=== PATIENT | female | born 1965 | race Caucasian/White ===

== ENCOUNTER 2020-11-07 17:44 | Emergency (ER) | payer SELFPAY ==
--- NOTE | 2020-11-07 17:55 | ED General ---
General Chief Complaint: General Problems/Pain Stated Complaint: DIZZINESS; TREMBLING; OUT OF LISINOPRIL History of Present Illness Date Seen by Provider: Nov 07, 2020 Time Seen by Provider: 17:53 Initial Comments 55-year-old female presents with feeling a little bit dizzy, and trembling of her hands. Patient reports that symptoms started yesterday. She reports that she has been out of lisinopril for couple days otherwise no new changes. She denies any fever, chills, cough, shortness of breath, urinary symptoms, headache, nausea or vomiting. Patient denies a lot of alcohol usage or previous recently stopping. She feels like she may be having a little fluttering or palpitations in her chest but no chest pain. Patient reports her last menstrual cycle was about a year and a half ago. Allergies and Home Medications Allergies Coded Allergies: No Known Drug Allergies (Unverified , 11/07/20) Patient Home Medication List Home Medication List Reviewed: Yes Review of Systems Review of Systems Constitutional: No chills; dizziness; No fever EENTM: no symptoms reported Respiratory: No cough, No short of breath Cardiovascular: see HPI; No chest pain, No edema Gastrointestinal: No abdominal pain, No nausea, No vomiting Musculoskeletal: see HPI Skin: no symptoms reported Psychiatric/Neurological: Tremors Hematologic/Lymphatic: No Symptoms Reported Immunological/Allergic: no symptoms reported Physical Exam Vital Signs Vital Signs - First Documented 11/07/20 11/07/20 17:48 19:23 Temp 36.5 Pulse 104 Resp 16 B/P (MAP) 171/127 (142) Pulse Ox 100 O2 Delivery Room Air Capillary Refill : Height, Weight, BMI Height: '" Weight: lbs. oz. 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 Norm as Tested, Other (Mild tremors of her hands) Skin: Normal Color, Warm/Dry Progress/Results/Core Measures Suspected Sepsis SIRS Temperature: Pulse: Respiratory Rate: Laboratory Tests 11/07/20 18:10: White Blood Count 4.0L Blood Pressure / Mean: Laboratory Tests 11/07/20 18:10: Creatinine 0.68, Platelet Count 166, Total Bilirubin 0.7 Results/Orders Lab Results Laboratory Tests Test 11/07/20 18:08 11/07/20 18:10 11/07/20 18:21 Range/Units Glucometer 88 70-110 MG/DL White Blood Count 4.0 L 4.3-11.0 10^3/uL Red Blood Count 4.74 4.35-5.85 10^6/uL Hemoglobin 14.3 11.5-16.0 G/DL Hematocrit 44 35-52 % Mean Corpuscular Volume 93 80-99 FL Mean Corpuscular Hemoglobin 30 25-34 PG Mean Corpuscular Hemoglobin Concent 32 32-36 G/DL Red Cell Distribution Width 14.0 10.0-14.5 % Platelet Count 166 130-400 10^3/uL Mean Platelet Volume 11.7 H 7.4-10.4 FL Immature Granulocyte % (Auto) 0 % Neutrophils (%) (Auto) 61 42-75 % Lymphocytes (%) (Auto) 29 12-44 % Monocytes (%) (Auto) 7 0-12 % Eosinophils (%) (Auto) 2 0-10 % Basophils (%) (Auto) 1 0-10 % Neutrophils # (Auto) 2.4 1.8-7.8 X 10^3 Lymphocytes # (Auto) 1.2 1.0-4.0 X 10^3 Monocytes # (Auto) 0.3 0.0-1.0 X 10^3 Eosinophils # (Auto) 0.1 0.0-0.3 10^3/uL Basophils # (Auto) 0.0 0.0-0.1 10^3/uL Immature Granulocyte # (Auto) 0.0 0.0-0.1 10^3/uL Sodium Level 139 135-145 MMOL/L Potassium Level 4.4 3.6-5.0 MMOL/L Chloride Level 104 98-107 MMOL/L Carbon Dioxide Level 26 21-32 MMOL/L Anion Gap 9 5-14 MMOL/L Blood Urea Nitrogen 10 7-18 MG/DL Creatinine 0.68 0.60-1.30 MG/DL Estimat Glomerular Filtration Rate > 60 BUN/Creatinine Ratio 15 Glucose Level 97 70-105 MG/DL Calcium Level 9.1 8.5-10.1 MG/DL Corrected Calcium 9.2 8.5-10.1 MG/DL Magnesium Level 2.0 1.6-2.4 MG/DL Total Bilirubin 0.7 0.1-1.0 MG/DL Aspartate Amino Transf (AST/SGOT) 60 H 5-34 U/L Alanine Aminotransferase (ALT/SGPT) 42 0-55 U/L Alkaline Phosphatase 74 40-136 U/L Total Protein 6.3 L 6.4-8.2 GM/DL Albumin 3.9 3.2-4.5 GM/DL Urine Color YELLOW Urine Clarity CLOUDY Urine pH 7.5 5-9 Urine Specific [place] 1.015 L 1.016-1.022 Urine Protein NEGATIVE NEGATIVE Urine Glucose (UA) NEGATIVE NEGATIVE Urine Ketones TRACE H NEGATIVE Urine Nitrite NEGATIVE NEGATIVE Urine Bilirubin NEGATIVE NEGATIVE Urine Urobilinogen 4.0 < = 1.0 MG/DL Urine Leukocyte Esterase NEGATIVE NEGATIVE Urine RBC (Auto) TRACE-I NEGATIVE Urine RBC NONE /HPF Urine WBC 0-2 /HPF Urine Squamous Epithelial Cells >50 H /HPF Urine Crystals NONE /LPF Urine Bacteria LARGE H /HPF Urine Casts NONE /LPF Urine Mucus NEGATIVE /LPF Urine Culture Indicated NO Urine Opiates Screen POSITIVE H NEGATIVE Urine Oxycodone Screen NEGATIVE NEGATIVE Urine Methadone Screen NEGATIVE NEGATIVE Urine Propoxyphene Screen NEGATIVE NEGATIVE Urine Barbiturates Screen NEGATIVE NEGATIVE Ur Tricyclic Antidepressants Screen NEGATIVE NEGATIVE Urine Phencyclidine Screen NEGATIVE NEGATIVE Urine Amphetamines Screen NEGATIVE NEGATIVE Urine Methamphetamines Screen NEGATIVE NEGATIVE Urine Benzodiazepines Screen NEGATIVE NEGATIVE Urine Cocaine Screen NEGATIVE NEGATIVE Urine Cannabinoids Screen NEGATIVE NEGATIVE My Orders Orders - OBREGON,BEBE L DO Cbc With Automated Diff (11/07/20 17:51) Comprehensive Metabolic Panel (11/07/20 17:51) Magnesium (11/07/20 17:51) Ua Culture If Indicated (11/07/20 17:51) Accucheck Stat ONCE (11/07/20 17:51) Ed Iv/Invasive Line Start (11/07/20 17:51) Ekg Tracing (11/07/20 17:51) Monitor-Rhythm Ecg Trace Only (11/07/20 17:51) Drug Screen Stat (Urine) (11/07/20 17:55) Thyroid Analyzer (11/07/20 17:58) Lisinopril Tablet (Zestril Tablet) (11/07/20 18:15) Medications Given in ED Vital Signs/I&O 11/07/20 11/07/20 17:48 19:23 Temp 36.5 36.5 Pulse 104 80 Resp 16 12 B/P (MAP) 171/127 (142) 123/72 (142) Pulse Ox 100 97 O2 Delivery Room Air Capillary Refill : Progress Note : Progress Note Patient symptoms improved throughout her stay. Patient reports that she has been under a lot of stress recently and thinks that maybe is just a reaction to the stress. She has not been sleeping well eating well etc. Patient's blood pressure improved throughout the stay. Patient stable and discharged home. She should follow-up with her primary care provider for continuation of care reevaluation next week. ECG Initial ECG Impression Date: Nov 07, 2020 Initial ECG Impression Time: 18:01 Initial ECG Rhythm: Normal Sinus, PVC Initial ECG Impression: Nonspecific Changes Comment sinus, pvc's, no acute changes Departure Impression Primary Impression: Anxiety related tremor Additional Impressions: Situational stress Hypertension Qualified Codes: I10 - Essential (primary) hypertension Disposition: HOME, SELF-CARE Condition: Stable Departure-Patient Inst. Referrals: JUNIE [place] MD (PCP/Family) Primary Care Physician Patient Instructions: Tremor, Stress, High Blood Pressure (DC) Add. Discharge Instructions: Follow-up with your primary care provider next week for recheck of today's symptoms return to the ER as needed All discharge instructions reviewed with patient and/or family. Voiced understanding. BEBE OBREGON DO Nov 07, 2020 17:55
[2020-11-07] MEDS ORDERED: lisINopril 10 MG (PRINIVIL) TABLET PO ONE (18:15)
[2020-11-07 18:16] LABS: EOSINOPHILS % (AUTO) 2 % (0-10); HEMATOCRIT 44 % (35-52); HEMOGLOBIN 14.3 G/DL (11.5-16.0); LYMPHOCYTES % (AUTO) 29 % (12-44); MEAN CORPUSCULAR HEMOGLOBIN 30 PG (25-34); MEAN CORPUSCULAR HGB CONC 32 G/DL (32-36); MEAN CORPUSCULAR VOLUME 93 FL (80-99); MEAN PLATELET VOLUME 11.7 FL (7.4-10.4); MONOCYTES % (AUTO) 7 % (0-12); NEUTROPHILS % (AUTO) 61 % (42-75); PLATELET COUNT 166 10^3/uL (130-400)
[2020-11-07 18:17] LABS: BASOPHILS % (AUTO) 1 % (0-10); EOSINOPHILS # (AUTO) 0.1 10^3/uL (0.0-0.3); LYMPHOCYTES # (AUTO) 1.2 X 10^3 (1.0-4.0); MONOCYTES # (AUTO) 0.3 X 10^3 (0.0-1.0); NEUTROPHILS # (AUTO) 2.4 X 10^3 (1.8-7.8)
[2020-11-07 18:28] LABS: BILIRUBIN,URINE NEGATIVE (NEGATIVE); CLARITY,URINE CLOUDY; COLOR,URINE YELLOW; GLUCOSE, URINE (UA) NEGATIVE (NEGATIVE); KETONES,URINE TRACE (NEGATIVE); LEUKOCYTE ESTERASE ,URINE NEGATIVE (NEGATIVE); NITRITE,URINE NEGATIVE (NEGATIVE); PH,URINE 7.5 (5-9); PROTEIN,URINE NEGATIVE (NEGATIVE)
[2020-11-07 18:29] LABS: BACTERIA,URINE LARGE /HPF; SQUAMOUS EPITHELIAL CELL,UR >50 /HPF; WBC,URINE 0-2 /HPF
[2020-11-07 18:34] LABS: OPIATE SCREEN URINE POSITIVE (NEGATIVE)
[2020-11-07 18:35] LABS: AMPHETAMINE SCREEN, URINE NEGATIVE (NEGATIVE); BARBITURATE SCREEN URINE NEGATIVE (NEGATIVE); BENZODIAZEPINES SCREEN URINE NEGATIVE (NEGATIVE); CANNABINOID SCREEN, URINE NEGATIVE (NEGATIVE); COCAINE SCREEN URINE NEGATIVE (NEGATIVE); METHADONE STAT NEGATIVE (NEGATIVE); METHAMPHETAMINE SCREEN URINE S NEGATIVE (NEGATIVE); OXYCODONE STAT NEGATIVE (NEGATIVE); PROPOXYPHENE STAT NEGATIVE (NEGATIVE); TRICYCLIC ANTIDEPRESSANTS SCRE NEGATIVE (NEGATIVE)
[2020-11-07 18:36] LABS: ALANINE AMINOTRANSFERASE 42 U/L (0-55); ALBUMIN 3.9 GM/DL (3.2-4.5); ALKALINE PHOSPHATASE 74 U/L (40-136); BILIRUBIN,TOTAL 0.7 MG/DL (0.1-1.0); BUN/CREATININE RATIO 15; CALCIUM 9.1 MG/DL (8.5-10.1); CARBON DIOXIDE 26 MMOL/L (21-32); CHLORIDE 104 MMOL/L (98-107); CREATININE SERUM 0.68 MG/DL (0.60-1.30); GFR ESTIMATED > 60; GLUCOSE 97 MG/DL (70-105); POTASSIUM 4.4 MMOL/L (3.6-5.0); SODIUM 139 MMOL/L (135-145); TOTAL PROTEIN 6.3 GM/DL (6.4-8.2)
[2020-11-07 19:23] VITALS: BP 123/72
== END 2020-11-07 19:23 | disposition home or self-care (01) ==
LOC: ER FS 17:46
DX: G25.2 Other specified forms of tremor (principal); F43.9 Reaction to severe stress, unspecified; I10 Essential (primary) hypertension
CPT/HCPCS: 36415; 80053; 80306; 81000; 82947; 83735; 84443; 85025; 93005; 93041

== ENCOUNTER 2022-10-12 10:27 | Emergency (ER) | payer SELFPAY ==
[~2022-10-12] VITALS: Ht 165 cm; Wt 100.0 kg
--- NOTE | 2022-10-12 10:43 | ED General ---
General Chief Complaint: General Problems/Pain Stated Complaint: TREMORS; DIZZINESS Source of Information: Patient, RN/MD Exam Limitations: No Limitations History of Present Illness Date Seen by Provider: Oct 12, 2022 Time Seen by Provider: 10:28 Initial Comments 57-year-old female with past medical history of hypertension coming in as referral from urgent care due to elevated blood pressure. The patient states she originally went to the urgent care due to feeling generally lightheaded and just shaky. She worked outside all day yesterday, sweats a lot, try to keep up with her fluids, went to urgent care because she was not feeling well. There her blood pressure initially was 200s over 100. Went down to 160s systolic with rest. She states she has been off her lisinopril for a couple of years after she lost weight and did not need it anymore. She states she unfortunately has gained the weight back, an was thinking she probably needed to be back on the medication. She denies any chest pain, shortness of breath, headache, vision changes, weakness, numbness, diarrhea, nausea, vomiting, rash, or any other concerns. She does endorse some mild dysuria. LMP was 4 years ago and she is postmenopausal. Allergies and Home Medications Allergies Coded Allergies: No Known Drug Allergies (Unverified , 11/07/20) Patient Home Medication List Home Medication List Reviewed: Yes Lisinopril (Lisinopril) 5 Mg Tablet, 5 MG PO DAILY Prescribed by: NORM RICARDO on 10/12/22 8308 Review of Systems Review of Systems Constitutional: No fever EENTM: no symptoms reported Respiratory: no symptoms reported Cardiovascular: no symptoms reported Gastrointestinal: no symptoms reported Musculoskeletal: no symptoms reported Skin: no symptoms reported Psychiatric/Neurological: See HPI Past [id number] Hx Patient Social History Tobacco Use?: Yes Tobacco type used: Cigarettes Past Medical History Surgery/Hospitalization HX: gastric bypass Surgeries: Yes Physical Exam Vital Signs Vital Signs - First Documented 10/12/22 10:35 Temp 36.0 Pulse 111 Resp 18 B/P (MAP) 173/91 (118) Pulse Ox 98 O2 Delivery Room Air Capillary Refill : Height, Weight, BMI Height: '" Weight: lbs. oz. kg; 36.00 BMI Method: General Appearance: No Apparent Distress, WD/WN Eyes: Bilateral Eye Normal Inspection, Bilateral Eye PERRL, Bilateral Eye EOMI, Bilateral Eye Other (Normal visual francis and visual acuity) HEENT: PERRL/EOMI, Normal ENT Inspection, Pharynx Normal Neck: Full Range of Motion, Normal Inspection, Non Tender, Supple Respiratory: Chest Non Tender, Lungs Clear, Normal Breath Sounds, No Accessory Muscle Use, No Respiratory Distress Cardiovascular: Regular Rate, Rhythm, No Edema, Normal Peripheral Pulses Gastrointestinal: Normal Bowel Sounds, Non Tender, Soft Back: Normal Inspection, No CVA Tenderness Extremity: Normal Capillary Refill, Normal Inspection, Normal Range of Motion, Non Tender, No Calf Tenderness, No Pedal Edema Neurologic/Psychiatric: Alert, Oriented x3, No Motor/Sensory Deficits, Normal 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, 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 Norm as Tested, Other (Normal [id number], normal gait) Skin: Normal Color, Warm/Dry Progress/Results/Core Measures Suspected Sepsis SIRS Temperature: Pulse: 111 Respiratory Rate: 18 Laboratory Tests 10/12/22 10:39: White Blood Count 4.5 Blood Pressure 173 /91 Mean: 118 Laboratory Tests 10/12/22 10:39: Creatinine 0.73, Platelet Count 122L, Total Bilirubin 1.1H Results/Orders Lab Results Laboratory Tests Test 10/12/22 10:36 10/12/22 10:39 Range/Units Urine Color YELLOW Urine Clarity CLEAR Urine pH 6.5 5-9 Urine Specific [place] <=1.005 1.016-1.022 Urine Protein NEGATIVE NEGATIVE Urine Glucose (UA) NEGATIVE NEGATIVE Urine Ketones NEGATIVE NEGATIVE Urine Nitrite NEGATIVE NEGATIVE Urine Bilirubin NEGATIVE NEGATIVE Urine Urobilinogen 0.2 < = 1.0 MG/DL Urine Leukocyte Esterase NEGATIVE NEGATIVE Urine RBC (Auto) 1+ H NEGATIVE Urine RBC 2-5 H /HPF Urine WBC NONE /HPF Urine Squamous Epithelial Cells 2-5 /HPF Urine Crystals NONE /LPF Urine Bacteria NEGATIVE /HPF Urine Casts NONE /LPF Urine Mucus NEGATIVE /LPF Urine Culture Indicated NO White Blood Count 4.5 4.3-11.0 10^3/uL Red Blood Count 4.92 3.80-5.11 10^6/uL Hemoglobin 15.1 11.5-16.0 g/dL Hematocrit 45 35-52 % Mean Corpuscular Volume 92 80-99 fL Mean Corpuscular Hemoglobin 31 25-34 pg Mean Corpuscular Hemoglobin Concent 33 32-36 g/dL Red Cell Distribution Width 13.0 10.0-14.5 % Platelet Count 122 L 130-400 10^3/uL Mean Platelet Volume 11.6 9.0-12.2 fL Immature Granulocyte % (Auto) 0 % Neutrophils (%) (Auto) 72 42-75 % Lymphocytes (%) (Auto) 21 12-44 % Monocytes (%) (Auto) 5 0-12 % Eosinophils (%) (Auto) 1 0-10 % Basophils (%) (Auto) 1 0-10 % Neutrophils # (Auto) 3.2 1.8-7.8 10^3/uL Lymphocytes # (Auto) 1.0 1.0-4.0 10^3/uL Monocytes # (Auto) 0.2 0.0-1.0 10^3/uL Eosinophils # (Auto) 0.1 0.0-0.3 10^3/uL Basophils # (Auto) 0.0 0.0-0.1 10^3/uL Immature Granulocyte # (Auto) 0.0 0.0-0.1 10^3/uL Percent Immature Platelet Fraction 10.6 H 0.0-7.6 % Sodium Level 140 135-145 MMOL/L Potassium Level 4.2 3.6-5.0 MMOL/L Chloride Level 104 98-107 MMOL/L Carbon Dioxide Level 22 21-32 MMOL/L Anion Gap 14 5-14 MMOL/L Blood Urea Nitrogen 15 7-18 MG/DL Creatinine 0.73 0.60-1.30 MG/DL Estimat Glomerular Filtration Rate 96 BUN/Creatinine Ratio 21 Glucose Level 103 70-105 MG/DL Calcium Level 9.9 8.5-10.1 MG/DL Corrected Calcium 9.6 8.5-10.1 MG/DL Total Bilirubin 1.1 H 0.1-1.0 MG/DL Aspartate Amino Transf (AST/SGOT) 115 H 5-34 U/L Alanine Aminotransferase (ALT/SGPT) 98 H 0-55 U/L Alkaline Phosphatase 92 40-136 U/L Total Protein 6.9 6.4-8.2 GM/DL Albumin 4.4 3.2-4.5 GM/DL My Orders Orders - NORM RICARDO MD Cbc With Automated Diff (10/12/22 10:39) Comprehensive Metabolic Panel (10/12/22 10:39) Ua Culture If Indicated (10/12/22 10:39) Ekg Tracing (10/12/22 10:39) Lisinopril Tablet (Zestril Tablet) (10/12/22 10:45) Medications Given in ED Current Medications Medications Dose Ordered Sig/Carie Route Start Time Stop Time Status Last Admin Dose Admin Lisinopril 5 mg ONCE ONCE PO 10/12/22 10:45 10/12/22 10:46 DC 10/12/22 10:50 5 MG Vital Signs/I&O 10/12/22 10:35 Temp 36.0 Pulse 111 Resp 18 B/P (MAP) 173/91 (118) Pulse Ox 98 O2 Delivery Room Air Capillary Refill : Progress Note : Progress Note 57-year-old female with above history coming in due to elevated blood pressure and feeling lightheaded. ABCs were intact and vitals are stable on presentation although her blood pressure is elevated. She is not having any chest pain, shortness of breath, weakness, numbness, headache, vision changes, or urinary issues. No clinical signs of endorgan damage. An IV was placed and basic labs were obtained were significant for a normal creatinine, normal hemoglobin, slightly elevated AST and ALT. I will have her follow back up with her PCP in the next month or so to have her liver enzymes redrawn to see if she needs further work-up. EKG with no acute ischemic changes on my interpretation. Given she is not having any chest pain and no concerning EKG findings, this is not consistent with ACS. She was given lisinopril here for her elevated blood pressure, and I will write a prescription for it. I believe she is otherwise stable for discharge with outpatient follow-up. She was sent home with strict return precautions. ECG Initial ECG Impression Date: Oct 12, 2022 Initial ECG Impression Time: 10:49 Initial ECG Rate: 86 Initial ECG Rhythm: Normal Sinus Comment Narrow QRS, normal axis, no significant ST changes or T wave abnormalities, significant artifact Departure Impression Primary Impression: Hypertension Qualified Codes: I10 - Essential (primary) hypertension Additional Impression: Transaminitis Disposition: HOME, SELF-CARE Condition: Stable Departure-Patient Inst. Decision time for Depature: 12:00 Referrals: NO,LOCAL PHYSICIAN (PCP/Family) Primary Care Physician Patient Instructions: High Blood Pressure ED Add. Discharge Instructions: Your blood pressure was elevated here. We would like to restart you on the lisinopril. It's possible you were slightly dehydrated. Additionally your liver enzymes were slightly elevated. These need to be redrawn by your regular doctor in the next month or so. Scripts Lisinopril (Lisinopril) 5 Mg Tablet 5 MG PO DAILY for 30 Days, #30 TAB Prov: NROM RICARDO MD 10/12/22 Work/School Note: Work Release Form Date Seen in the Emergency Department: Oct 12, 2022 Return to Work: Oct 13, 2022 Restrictions: No Restrictions NORM RICARDO MD Oct 12, 2022 10:43
[2022-10-12] MEDS ORDERED: lisINopril 10 MG (PRINIVIL) TABLET PO ONE (10:45)
[2022-10-12 10:50] LABS: BILIRUBIN,URINE NEGATIVE (NEGATIVE); CLARITY,URINE CLEAR; COLOR,URINE YELLOW; GLUCOSE, URINE (UA) NEGATIVE (NEGATIVE); KETONES,URINE NEGATIVE (NEGATIVE); LEUKOCYTE ESTERASE ,URINE NEGATIVE (NEGATIVE); NITRITE,URINE NEGATIVE (NEGATIVE); PH,URINE 6.5 (5-9); PROTEIN,URINE NEGATIVE (NEGATIVE)
[2022-10-12 10:59] LABS: BACTERIA,URINE NEGATIVE /HPF
[2022-10-12 11:05] LABS: BASOPHILS % (AUTO) 1 % (0-10); EOSINOPHILS # (AUTO) 0.1 10^3/uL (0.0-0.3); EOSINOPHILS % (AUTO) 1 % (0-10); HEMATOCRIT 45 % (35-52); HEMOGLOBIN 15.1 g/dL (11.5-16.0); LYMPHOCYTES % (AUTO) 21 % (12-44); MEAN CORPUSCULAR HEMOGLOBIN 31 pg (25-34); MEAN CORPUSCULAR HGB CONC 33 g/dL (32-36); MEAN CORPUSCULAR VOLUME 92 fL (80-99); MEAN PLATELET VOLUME 11.6 fL (9.0-12.2); MONOCYTES # (AUTO) 0.2 10^3/uL (0.0-1.0); MONOCYTES % (AUTO) 5 % (0-12); NEUTROPHILS # (AUTO) 3.2 10^3/uL (1.8-7.8); NEUTROPHILS % (AUTO) 72 % (42-75); PLATELET COUNT 122 10^3/uL (130-400); WHITE BLOOD COUNT 4.5 10^3/uL (4.3-11.0)
[2022-10-12 11:24] LABS: POTASSIUM 4.2 MMOL/L (3.6-5.0)
[2022-10-12 11:25] LABS: ALBUMIN 4.4 GM/DL (3.2-4.5); BILIRUBIN,TOTAL 1.1 MG/DL (0.1-1.0); CALCIUM 9.9 MG/DL (8.5-10.1); CREATININE SERUM 0.73 MG/DL (0.60-1.30); TOTAL PROTEIN 6.9 GM/DL (6.4-8.2)
[2022-10-12] MEDS ORDERED: LISI5TAB20 PO (11:48)
[2022-10-12 12:00] VITALS: BP 144/88
== END 2022-10-12 11:55 | disposition home or self-care (01) ==
LOC: EDUNIT# 10:27 → ER FS 10:29
DX: I10 Essential (primary) hypertension (principal); R74.01 Elevation of levels of liver transaminase levels; F17.210 Nicotine dependence, cigarettes, uncomplicated
CPT/HCPCS: 36415; 80053; 81000; 85025